=== PATIENT | female | born 1995 | race Hispanic/Latino ===

== ENCOUNTER 2018-09-08 10:11 | Outpatient (CLI) | payer BC ==
--- NOTE | 2018-09-08 13:38 | RAD ---
LEFT HIP ARTHROGRAM: INDICATIONS: Left hip pain. TECHNIQUE: Informed consent was obtained. Pre-procedure office rental clerk images were performed of the left hip. The site overlying the left hip was prepped and draped in the usual sterile fashion. Buffered 1% Lidocaine wa s administered to overlying subcutaneous tissues. Under fluoroscopic guidance, I personally guided a 22 gauge spinal needle into the left hip joint and administered 6 mL of a diluted Gadolinium solutio n. The patient tolerated the injection without difficulty. Total fluoroscopic time was 0.7 minutes. Total exposure was 63.2 Gy per m2. The patient tolerated the procedure without difficulty. FINDINGS: The left hip appears radiographically normal. No acute fracture or subluxation is evident. IMPRESSION: Successful left hip arthrogram. POS: [facility]
--- NOTE | 2018-09-08 15:40 | MRI ---
MR ARTHROGRAM LEFT HIP: INDICATIONS: Left hip pain. TECHNIQUE: Multiplanar, multisequence MR images were obtained of the left hip following intraarticular administr ation of a diluted Gadolinium solution. Please see the separately dictated left hip arthrogram for d etails concerning the injection technique. FINDINGS: There is a partial-thickness tear involving the anterior-superior acetabular labrum, best seen on filiberto ge 14 of series 8 and image 13 of series 8. This is also best seen on image 11 of series 7. The art icular cartilage of the left acetabulum and femoral head appear preserved. Ligamentum teres is intac t. Left hip adductor minimus and medius tendons appear within normal limits. No trochanteric or corine opsoas bursitis is evident. The hamstring and rectus femoris origins appear within normal limits. I ncidental note is made of small follicles within the left ovary. No bone marrow signal abnormality i s evident. IMPRESSION: Partial-thickness tear involving the anterior-superior left hip acetabular labrum without evidence of articular cartilage defect. POS: [facility]
== END 2018-09-08 10:12 | disposition home or self-care (01) ==
LOC: RAD 10:11
PROVIDERS: ATTEND Orthopaedic Surgery
DX: M25.552 Pain in left hip (principal)
CPT/HCPCS: 27093